=== PATIENT | male | born 1995 | race Caucasian/White ===

== ENCOUNTER 2016-04-20 05:16 | Inpatient (IN) | payer BC, OTHER ==
[~2016-04-20] VITALS: Ht 180.3 cm; Wt 77.5 kg
[2016-04-20] VITALS (7 sets, daily range): BP systolic 114–136; BP diastolic 71–76; PULSE 66–84; TEMP 36.5–36.9; O2SAT 98–100; Ht 180.3 cm; Wt 77.5 kg
[2016-04-20] MEDS ORDERED: SODIUM CHLORIDE 0.9% 1000ML 1,000 ML IV STA (05:32)
--- NOTE | 2016-04-20 05:37 | EMERGENCY ROOM VISIT NOTE ---
History Report prepared by Lucioibvidal: Kailey Burns Under the Supervision of: Dr. Brandyn Adams M.D. First contact with patient: 05:26 Chief Complaint: RASH Stated Complaint: RASH ON LEG,MOUTH FEELS STRANGE History of Present Illness The patient is a 21 year old male who presents to the Emergency Room with complaints of a persistent rash that started yesterday. He reports the rash is located in his mouth and on his bilateral legs. He denies any pain or itching from the rash. He denies any recent bleeding issues or trauma. He denies any recent fevers, cough, sore throat, headache, neck stiffness, hematuria or dysuria. He also denies any recent illness and states he has felt fine recently. The patient does note he cut himself shaving yesterday morning and states the cut blood for "a while". Source of History: patient Onset: yesterday Position: leg (bilateral), other (mouth) Symptom Intensity: 0/10 Timing: other (persistent) Associated Symptoms: No cough, No fevers, No headache, No neck pain, No sorethroat, No urinary symptoms Review of Systems See HPI for pertinent positives & negatives. A total of 10 systems reviewed and were otherwise negative. Past Medical & Surgical Medical Problems: (1) No significant medical problems (2) Rash Surgical Problems: (1) No significant past surgical history Social History Smoking Status: Never Smoker Smokeless Tobacco Use: No Alcohol Use: occasionally Drug Use: none Marital Status: single Housing Status: lives with roommate Occupation Status: [employer] student Current/Historical Medications No Active Prescriptions or Reported Meds Allergies Coded Allergies: No Known Allergies (Unverified , 04/20/16) Physical Exam Vital Signs Date Time Temp Pulse Resp B/P Pulse Ox O2 Delivery O2 Flow Rate FiO2 04/20/16 07:12 82 17 146/80 96 Room Air 04/20/16 06:31 68 18 124/76 98 Room Air 04/20/16 05:21 36.7 79 20 135/85 99 Room Air Physical Exam GENERAL: Patient is mildly anxious appearing and appears to be in no distress. HEENT: No acute trauma, normocephalic atraumatic, blood blisters and petechial rash throughout inner lips and buccal mucosa, no nasal congestion, no scleral icterus. NECK: No stridor, no adenopathy, no meningismus, trachea is midline. LUNGS: No dyspnea. Clear to auscultation and equal bilaterally. No wheeze, no rhonchi. HEART: Regular rate and rhythm. No murmurs, rubs, gallops appreciated. ABDOMEN: Soft, nontender, bowel sounds positive, no masses appreciated, no peritonitis. BACK: No midline tenderness, no CVA tenderness EXTREMITIES: Normal motion all extremities, no cyanosis, no edema. NEUROLOGIC: Alert and oriented, no acute motor or sensory deficits, no focal weakness, cranial nerves grossly intact. SKIN: Extensive petechial rash of bilateral lower extremities. No cyanosis, no edema. Medical Decision & Procedures Laboratory Results 04/20/16 05:40 Red Blood Count 5.24, Mean Corpuscular Volume 88.0, Mean Corpuscular Hemoglobin 31.1, Mean Corpuscular Hemoglobin Concent 35.4, Neutrophils (%) (Auto) 56.8, Lymphocytes (%) (Auto) 35.3, Monocytes (%) (Auto) 6.7, Eosinophils (%) (Auto) 0.7, Basophils (%) (Auto) 0.3, Neutrophils # (Auto) 4.94, Lymphocytes # (Auto) 3.07, Monocytes # (Auto) 0.58, Eosinophils # (Auto) 0.06, Basophils # (Auto) 0.03 04/20/16 05:40 Test 04/20/16 05:40 White Blood Count 8.70 K/uL (4.8-10.8) Red Blood Count 5.24 M/uL (4.7-6.1) Hemoglobin 16.3 g/dL (14.0-18.0) Hematocrit 46.1 % (42-52) Mean Corpuscular Volume 88.0 fL (80-100) Mean Corpuscular Hemoglobin 31.1 pg (25-34) Mean Corpuscular Hemoglobin Concent 35.4 g/dl (32-36) Platelet Count 2 K/uL (130-400) Neutrophils (%) (Auto) 56.8 % Lymphocytes (%) (Auto) 35.3 % Monocytes (%) (Auto) 6.7 % Eosinophils (%) (Auto) 0.7 % Basophils (%) (Auto) 0.3 % Neutrophils # (Auto) 4.94 K/uL (1.4-6.5) Lymphocytes # (Auto) 3.07 K/uL (1.2-3.4) Monocytes # (Auto) 0.58 K/uL (0.11-0.59) Eosinophils # (Auto) 0.06 K/uL (0-0.5) Basophils # (Auto) 0.03 K/uL (0-0.2) RDW Standard Deviation 42.7 fL (36.4-46.3) RDW Coefficient of Variation 13.3 % (11.5-14.5) Immature Granulocyte % (Auto) 0.2 % Immature Granulocyte # (Auto) 0.02 K/uL (0.00-0.02) Platelet Estimate SIGNIFIC DECREASED Prothrombin Time 11.1 SECONDS (9.0-12.0) Prothromb Time International Ratio 1.0 (0.9-1.1) Activated Partial Thromboplast Time 34.6 SECONDS (21.0-31.0) Partial Thromboplastin Ratio 1.3 Anion Gap 7.0 mmol/L (3-11) Est Creatinine Clear Calc Drug Dose 113.1 ml/min Estimated GFR () 110.6 Estimated GFR (Non- 95.5 BUN/Creatinine Ratio 28.9 (10-20) Calcium Level 9.2 mg/dl (8.5-10.1) Total Bilirubin 0.4 mg/dl (0.2-1) Direct Bilirubin < 0.1 mg/dl (0-0.2) Aspartate Amino Transf (AST/SGOT) 30 U/L (15-37) Alanine Aminotransferase (ALT/SGPT) 63 U/L (12-78) Alkaline Phosphatase 71 U/L (45-117) C-Reactive Protein < 0.29 mg/dl (0-0.29) Total Protein 7.9 gm/dl (6.4-8.2) Albumin 4.2 gm/dl (3.4-5.0) Monoscreen NEG (NEG) Laboratory results as reviewed by me. Medications Administered Medications (Trade) Dose Ordered Sig/Miki Route Start Time Stop Time Status Last Admin Dose Admin Sodium Chloride (Nss 1000ml) 1,000 ml @ 75 mls/hr [id number] STAT IV 04/20/16 05:32 04/20/16 18:51 04/20/16 05:40 75 MLS/HR ED Course 0528: The patient was evaluated in room B10. A complete history and physical exam was performed. 0532: NSS 1000 ml @ 75 mls/hr IV. 0645: I reevaluated the patient. He is resting comfortably but is requesting I call his parents to discuss his test results. I had an extensive conversation with the patients Mother and she verbalized complete understanding and agreement. Medical Decision 21 yr old male arrives for evaluation for blisters in mouth and petechia on legs. He has no pain nor other symptoms. Did eventually admit easy bloody noses recently. No abdominal TTP, has clear lungs and no breathing difficulty. Denies blood in stool nor urinary symptoms. No recent infection nor viral syndromes. Stable and in no distress. No medications recently. Exam and labs consistent with ITP. Others drug reaction, TTP, HUS, HSP much less likely. No evidence of sepsis nor meningitis. He is not in DIC. Discussed steroids with admission team and they note they will discuss further with Hematology prior to initiation of these as inpatient. I discussed case at request of patient with his Mother (Samantha: [phone]) and made her aware of what is going on. Parents will drive in from [facility] area this morning. Impression Primary Impression: Idiopathic thrombocytopenia Scribe Attestation The scribe's documentation has been prepared under my direction and personally reviewed by me in its entirety. I confirm that the note above accurately reflects all work, treatment, procedures, and medical decision making performed by me. Departure Information Dispostion Being Evaluated By Hospitalist Prescriptions No Active Prescriptions or Reported Meds Referrals [facility] (PCP) Patient Instructions [facility]
[2016-04-20 06:09] LABS: PARTIAL THROMBOPLASTIN RATIO 1.3; PROTHROMBIN TIME (PATIENT) 11.1 SECONDS (9.0-12.0)
[2016-04-20 06:14] LABS: ALT/SGPT 63 U/L (12-78); AST/SGOT 30 U/L (15-37); BLOOD UREA NITROGEN 32 mg/dl (7-18); BUN/CREATININE RATIO 28.9 (10-20); CALCIUM 9.2 mg/dl (8.5-10.1); CARBON DIOXIDE 31 mmol/L (21-32); CHLORIDE 103 mmol/L (98-107); GLUCOSE 103 mg/dl (70-99); POTASSIUM 3.3 mmol/L (3.5-5.1); SODIUM 141 mmol/L (136-145)
[2016-04-20 06:17] LABS: ALKALINE PHOSPHATASE 71 U/L (45-117)
[2016-04-20 06:24] LABS: BASO % 0.3 %; BASO ABS # 0.03 K/uL (0-0.2); COMPLETE YES; EOS % 0.7 %; HEMATOCRIT 46.1 % (42-52); IG% 0.2 %; LYMPH % 35.3 %; LYMPH ABS # 3.07 K/uL (1.2-3.4); MEAN CORPUSCULAR HEMOGLOBIN 31.1 pg (25-34); MEAN CORPUSCULAR HGB CONC 35.4 g/dl (32-36); MONO % 6.7 %; NEUT % 56.8 %; PLATELET COUNT 2 K/uL (130-400); PLT ESTIMATE SIGNIFIC DECREASED; RED BLOOD COUNT 5.24 M/uL (4.7-6.1)
--- NOTE | 2016-04-20 08:18 | History and Physical ---
History & Physical Date & Time of Service: Apr 20, 2016 at 08:18 Chief Complaint: Rash On Leg,Mouth Feels Strange Primary Care Physician: [facility] History of Present Illness Source: patient This is a 21 y/o male with no significant PMx presented to the hospital with petechial rash. He states that he noticed the rash yesterday night. He also had epistaxis every time he would blow his nose. First he noticed the rash mostly on his lower extremities and now it is spreading to his upper extremities as well. He states he didn't any febrile illness but he was congested for past 2-3 days. He is otherwise healthy. He denies cough, SOB, chest pain, sore throat, headache, neck stiffness, hematuria, dysuria, or any GI bleeding. Lab work on admission showed WBCs: 8700, hemoglobin:16.3 and a platelet count: 2000. Past Medical/Surgical History Medical Problems: (1) No significant medical problems Status: Chronic Surgical Problems: (1) No significant past surgical history Status: Chronic Social History Smoking Status: Never Smoker Smokeless Tobacco Use: No Alcohol Use: 3-4 days/week and would drink about 8-9 drinks Drug Use: none Marital Status: single Occupational Status: [employer] student Allergies Coded Allergies: No Known Allergies (Unverified , 04/20/16) Home Medications Scheduled Dexamethasone (Decadron), 40 MG PO UD Pantoprazole (Pantoprazole Sodium), 40 MG PO QAM Review of Systems Constitutional: No chills, No fever Respiratory: No cough, No dyspnea at rest, No dyspnea on exertion, No shortness of breath, No sputum, No wheezing Cardiovascular: No chest pain, No edema Abdomen: No GI bleeding, No constipation, No diarrhea, No nausea, No pain, No vomiting Musculoskeletal: No muscle pain Genitourinary - Male: No dysuria, No hematuria, No urinary frequency, No urinary urgency Integumentary: + problem reported (petechial rash on b/l lower extremities) Physical Exam Vital Signs Date Time Temp Pulse Resp B/P Pulse Ox O2 Delivery O2 Flow Rate FiO2 04/20/16 07:12 82 17 146/80 96 Room Air 04/20/16 06:31 68 18 124/76 98 Room Air 04/20/16 05:21 36.7 79 20 135/85 99 Room Air General Appearance: no apparent distress Head: normocephalic, atraumatic Eyes: normal inspection, PERRL, EOMI ENT: TMs normal Neck: supple, trachea midline Respiratory/Chest: chest non-tender, lungs clear, normal breath sounds, no respiratory distress, no accessory muscle use Cardiovascular: regular rate, rhythm, no edema, no murmur Abdomen/GI: normal bowel sounds, non tender, soft Extremities/Musculoskelatal: no calf tenderness, no pedal edema, non-tender Neurologic/Psych: alert, normal mood/affect, oriented x 3 Skin: normal color, warm/dry, + pertinent finding (petechial rash mostly on the b/l lower extremities, noted few on the upper extremities. Also noted throughout inner lips and buccal mucosa) Diagnostics Laboratory Results Results Past 24 Hours Test 04/20/16 05:40 04/20/16 07:45 Range/Units White Blood Count 8.70 4.8-10.8 K/uL Red Blood Count 5.24 4.7-6.1 M/uL Hemoglobin 16.3 14.0-18.0 g/dL Hematocrit 46.1 42-52 % Mean Corpuscular Volume 88.0 80-100 fL Mean Corpuscular Hemoglobin 31.1 25-34 pg Mean Corpuscular Hemoglobin Concent 35.4 32-36 g/dl Platelet Count 2 130-400 K/uL Neutrophils (%) (Auto) 56.8 % Lymphocytes (%) (Auto) 35.3 % Monocytes (%) (Auto) 6.7 % Eosinophils (%) (Auto) 0.7 % Basophils (%) (Auto) 0.3 % Neutrophils # (Auto) 4.94 1.4-6.5 K/uL Lymphocytes # (Auto) 3.07 1.2-3.4 K/uL Monocytes # (Auto) 0.58 0.11-0.59 K/uL Eosinophils # (Auto) 0.06 0-0.5 K/uL Basophils # (Auto) 0.03 0-0.2 K/uL RDW Standard Deviation 42.7 36.4-46.3 fL RDW Coefficient of Variation 13.3 11.5-14.5 % Immature Granulocyte % (Auto) 0.2 % Immature Granulocyte # (Auto) 0.02 0.00-0.02 K/uL Platelet Estimate SIGNIFIC DECREASED Prothrombin Time 11.1 9.0-12.0 SECONDS Prothromb Time International Ratio 1.0 0.9-1.1 Activated Partial Thromboplast Time 34.6 21.0-31.0 SECONDS Partial Thromboplastin Ratio 1.3 Sodium Level 141 136-145 mmol/L Potassium Level 3.3 3.5-5.1 mmol/L Chloride Level 103 98-107 mmol/L Carbon Dioxide Level 31 21-32 mmol/L Anion Gap 7.0 3-11 mmol/L Blood Urea Nitrogen 32 7-18 mg/dl Creatinine 1.10 0.60-1.40 mg/dl Est Creatinine Clear Calc Drug Dose 113.1 ml/min Estimated GFR () 110.6 Estimated GFR (Non- 95.5 BUN/Creatinine Ratio 28.9 10-20 Random Glucose 103 70-99 mg/dl Calcium Level 9.2 8.5-10.1 mg/dl Total Bilirubin 0.4 0.2-1 mg/dl Direct Bilirubin < 0.1 0-0.2 mg/dl Aspartate Amino Transf (AST/SGOT) 30 15-37 U/L Alanine Aminotransferase (ALT/SGPT) 63 12-78 U/L Alkaline Phosphatase 71 45-117 U/L C-Reactive Protein < 0.29 0-0.29 mg/dl Total Protein 7.9 6.4-8.2 gm/dl Albumin 4.2 3.4-5.0 gm/dl Monoscreen NEG NEG Impression Assessment and Plan This is a 21 y/o male presented to the hospital for petechial rash on lower extremities X2days. 1. Immune thrombocytopenic purpura - Lab work showed platelet count is 2000 - [place] screen is negative, Hep C negative - Parvo and EBV titers are pending - Urine tox (-) - UA is negative for UTI - Start him on dexamethasone 40mg daily for 4days - IV immunoglobin 1gm/kg BID - Protonix 40mg - Heme/Onc is consulted and will continue to appreciate their recommendation - Dr. Gamez recommended to follow up in the clinic after discharge on Sunday 2. Alcohol abuse - Patient drinks 3-4/week and states that he usually take about 8-9 drinks together. - Will discuss with him about alcohol abuse consequences and cessation. 3. DVT prophylaxis - SCDs 4. Code Status - Full code Level of Care Med/Surg Resuscitation Status FULL RESUSCITATION VTE Prophylaxis VTE Risk Assessment Done? Y/N: Yes Risk Level: Moderate Given or contraindicated: SCD's History Resident Physician Supervision Note: I was present with Dr. Martin during the history and exam. I discussed the case with the resident and agree with the findings and plan as documented in the note. Any exceptions or clarifications are listed here. 21 y/o otherwise healthy male presents w/ ~24 hours of spotty red rash of the b/ l LE which has gradually progressed, accompanied by similar lesions in the mouth with bleeding gums and mild epistaxis with nose blowing. Reports some mild UR sx without fever last 2-3 days. No other recent illnesses. Reports no substance use but 3-4 episodes of drinking per week w/ 6+ drinks per episode. Reports no fever, lightheadedness, nausea, sensory changes. FHX - no apparent family history of bleeding disorders General Appearance: WD/WN, no apparent distress Ears, Nose, Throat: nasal congestion, nasal drainage, other (mucosal petichiae w/ bleeding gums) Neck: non-tender, full range of motion, supple Respiratory: chest non-tender, lungs clear, normal breath sounds, no respiratory distress Cardiovascular: normal peripheral pulses, regular rate, rhythm, no edema, no murmur Gastrointestinal: normal bowel sounds, non tender, soft, no organomegaly Neurologic/Psychiatric: other (petichial rash of the b/l LE and trunk) Assessment/Plan 21 y/o male without past medical history presents with petechial rash ITP - dexamethasone 4mg/kg, t/c IVIG. Hematology C/S. Bleeding precautions. f/u UTox, trend CBC daily Binge drinking - counseling regarding dangers and cessation of binge drinking behavior
[2016-04-20] MEDS ORDERED: NURSING VERBAL MED ORDER ONE ×2 (08:45→09:15)
[2016-04-20] MEDS ORDERED: DEXAMETHASONE INJ 40 MG in DEXTROSE 5% 50ML 50 ML IV ONE (09:00)
[2016-04-20] MEDS: PANTOprazole SOD 40 MG TAB PO SCH (09:14)
--- NOTE | 2016-04-20 09:30 | ONCOLOGY CONSULTATION ---
DATE OF CONSULTATION: 04/20/2016 REASON FOR CONSULTATION: Severe thrombocytopenia. HISTORY OF PRESENT ILLNESS: Braulio is a pleasant 21-year-old gentleman who presents to the Emergency Department at [facility] with cutaneous signs and symptoms related to low platelets. He reports about 48 hours ago while blowing his nose having a fair amount of epistaxis. Within hours developed wet purpura and petechial rash involving his lower extremities. The patient denies any previous febrile illness. He is otherwise a healthy 21-year-old gentleman with no significant medical history. Peripheral blood counts on admission confirm normal WBCs at 8700, hemoglobin 16.3 and a platelet count of 2000. Serum chemistries are otherwise unremarkable as well. PAST MEDICAL HISTORY: Negative. PAST SURGICAL HISTORY: Negative. MEDICATIONS PRIOR TO ADMISSION: None. ALLERGIES: No known drug allergies. FAMILY HISTORY: Unremarkable. Both mother and father are healthy. SOCIAL HISTORY: The patient is a [employer] student. Nonsmoker. Does drink alcohol socially. REVIEW OF SYSTEMS: As per HPI. CONSTITUTIONAL: Negative for fevers, chills or night sweats. Denies weight loss or anorexia. SKIN: Positive for petechial rash and oral wet purpura. No history of dermatoses otherwise. HEENT: Denies headaches, lightheadedness or dizziness. No visual or hearing deficits. No sinus symptoms, sore throat or dysphasia. Did report epistaxis day before admission. CARDIOVASCULAR: No history of coronary artery disease. LYMPH: No history of lymphoproliferative disorder. PULMONARY: Negative for COPD. He is not short of breath or dyspneic on exertion. GASTROINTESTINAL: Negative for abdominal pain, nausea, vomiting, diarrhea or constipation, hematochezia or melenic stools. GENITOURINARY: No history of urinary symptoms or problems. MUSCULOSKELETAL: No arthralgias or myalgias. No muscle weakness. NEUROLOGIC: Negative for seizure, stroke or migraine headache. HEMATOLOGIC: Positive for severe thrombocytopenia. PHYSICAL EXAMINATION: GENERAL: Very pleasant 21-year-old gentleman, well developed and nourished, in no acute distress. VITAL SIGNS: Temperature 36.7, pulse 79, respirations 20, blood pressure 135/85. SKIN: Again, petechial rash prominent in the lower extremities bilaterally. HEENT: Head: Atraumatic, normocephalic. Eyes: PERRLA, EOMI. Sclerae nonicteric. No conjunctival injection. Nares patent without rhinorrhea or discharge. Throat is clear. Tonsillar hypertrophy noted. Wet purpura throughout his buccal mucosa noted. NECK: Supple without JVD or thyromegaly. LYMPH: No cervical, supraclavicular or axillary palpable nodes. HEART: Regular rate and rhythm. No clicks, rubs, murmurs or gallops. LUNGS: Clear to auscultation bilaterally. ABDOMEN: Soft, nontender, nondistended, without palpable hepatosplenomegaly. EXTREMITIES: Musculoskeletal strength and pulses are equal. No clubbing, cyanosis or edema. NEUROLOGICAL: He is awake, alert and oriented x3. Cranial nerves II-XII are intact. LABORATORY DATA: As reported in the HPI. IMPRESSION: Immune thrombocytopenia. PLAN: The patient was admitted to the oncology floor for observation and definitive treatment. We will initiate dexamethasone 40 mg daily as well as intravenous immunoglobulin 1 gram/kg daily x2. Discussed immune thrombocytopenia with Braulio and advised him that this may be a chronic problem throughout his life. Remissions in young people are usually sustained but on occasion refractory disease can occur. I briefly discussed alternative therapies such as rituximab, possible splenectomy in the future. There is no indication to transfuse him platelets at this time. He is hemodynamically stable and shows no outward signs of hemorrhage. Should hemorrhage occur, platelets could be administered transiently. Would like to observe him over the next 24 hours. If his platelets are heading upward, I see no reason why he cannot be managed as an outpatient. The patient has already been advised not to engage in any activities which may promote a traumatic injury. We will make arrangements for close outpatient followup as indicated. CBC should be monitored daily until discharge. Thank you very much for allowing me to participate in his care. If you have any questions or concerns, feel free to contact me at anytime.
[2016-04-20 13:50] LABS: URINE APPEARANCE CLEAR (CLEAR); URINE BILIRUBIN NEG (NEG); URINE COLOR YELLOW; URINE EPITHELIAL CELL AUTO 0-5 /lpf (0-5); URINE NITRITE NEG (NEG); UROBILINOGEN NEG (NEG); ZZUR CULT IF INDIC CLEAN CATCH NO
[2016-04-20 13:55] LABS: MANUAL MICROSCOPIC REQUIRED? NO; REVIEW REQ? NO
[2016-04-20 14:28] LABS: BENZODIAZEPINE, URINE NEG (NEG); COCAINE,URINE NEG (NEG); PHENCYCLIDINE, URINE NEG (NEG)
[2016-04-21 00:30] VITALS: BP_SYST 132; BP_SYST 139; BP_DIAS 66; BP_DIAS 77; PULSE 77; TEMP 36.8; O2SAT 93; O2SAT 99
[2016-04-21 06:27] LABS: COMPLETE YES; HEMATOCRIT 42.6 % (42-52); IG% 0.3 %; LARGE PLATELETS 1+; LYMPH % 9.1 %; LYMPH ABS # 1.05 K/uL (1.2-3.4); MEAN CELL VOLUME 87.3 fL (80-100); MEAN CORPUSCULAR HEMOGLOBIN 30.5 pg (25-34); MONO % 8.4 %; NEUT % 82.2 %; PLATELET COUNT 15 K/uL (130-400); PLT ESTIMATE SIGNIFIC DECREASED; RED BLOOD COUNT 4.88 M/uL (4.7-6.1); WHITE BLOOD COUNT 11.48 K/uL (4.8-10.8)
[2016-04-21 06:39] LABS: BUN/CREATININE RATIO 19.6 (10-20); CALCIUM 9.2 mg/dl (8.5-10.1); CREATININE 0.94 mg/dl (0.60-1.40); POTASSIUM 3.7 mmol/L (3.5-5.1)
[2016-04-21] MEDS ORDERED: DEXAMETHASONE INJ 40 MG in DEXTROSE 5% 50ML 50 ML IV SCH (08:00)
[2016-04-21] MEDS ORDERED: DEXAMETHASONE INJ 40 MG in SYRINGE 0 ML IV SCH (08:00)
[2016-04-21] MEDS ORDERED: NURSING VERBAL MED ORDER ONE (08:00)
[2016-04-21 08:06] VITALS: BP 116/65; PULSE 64; TEMP 36.6; O2SAT 98
[2016-04-21] MEDS: PANTOprazole SOD 40 MG TAB PO SCH (08:28)
--- NOTE | 2016-04-21 08:34 | HEME/ONC PROGRESS NOTE ---
DATE: 04/21/2016 DATE: 04/21/2016 DIAGNOSIS: Immune thrombocytopenic purpura. HOSPITAL COURSE: Braulio is a pleasant 21-year-old gentleman who had presented to the Emergency Department yesterday with cutaneous signs and symptoms related to low platelets. His platelet count was 2000 and was empirically treated with high dose dexamethasone and intravenous immunoglobulin, both of which were well tolerated. He has no clinical issues this morning and would like to be discharged if possible. PHYSICAL EXAMINATION: GENERAL: 21-year-old gentleman in no acute distress. VITAL SIGNS: Temperature 36.8, pulse 77, respirations 18, blood pressure 132/66. SKIN: Positive for petechial rash involving the tibial plateaus bilaterally. HEENT: Oral mucosa with resolving wet purpura. NECK: Supple. HEART: Regular rate and rhythm. No clicks, rubs, murmurs or gallops. LUNGS: Clear to auscultation. ABDOMEN: Soft, nontender, nondistended, without palpable hepatosplenomegaly. EXTREMITIES: No calf tenderness or swelling. No clubbing, cyanosis or edema. NEUROLOGIC: Grossly intact. LABORATORY DATA: WBC count 11,480, hemoglobin 14.9, platelet count 15,000. Serum chemistries otherwise unremarkable. IMPRESSION: Idiopathic thrombocytopenic purpura. PLAN: The patient will receive a course of dexamethasone and intravenous immunoglobulin again today. I see no reason why he cannot be discharged post-infusion. He will need 2 additional days of oral dexamethasone 40 mg in total. He is instructed to take all of the dexamethasone in the morning so side effects may wane by bedtime. I will see him in the office later on this upcoming week. He is stable enough for discharge. CBC will be drawn on Sunday and again just prior to his followup visit. If you have any questions or concerns, feel free to contact me.
[2016-04-21] MEDS ORDERED: DXM/4 PO ×2 (09:19→09:23)
[2016-04-21] MEDS ORDERED: PRT40 PO (09:19)
--- NOTE | 2016-04-21 09:30 | Discharge Instructions ---
Discharge Instructions Admission Reason for Admission: Idiopathic Thrombocytopenia; Rash Discharge Discharge Diagnosis / Problem: Immune thrombocytopenic purpura Discharge Goals Goal(s): Decrease discomfort, Increase independence, Improve disease control Activity Recommendations Activity Limitations: resume your previous activity . Instructions / Follow-Up Instructions / Follow-Up You are admitted to the hospital because you had low platelet counts. - In the hospital you were given dexamethasone 40mg daily and IV immunoglobin twice. - Your platelet count improved - Please take the dexamethasone 40mg daily for 2 more days (ends on Sunday) - Take protonix 40mg daily for 1-2weeks - Follow up with Dr. Gamez on next Sunday as scheduled. Please do the blood work on this Sunday. - Follow up with primary doctor Dr. Martin in 4-6 weeks Current Hospital Diet Patient's current hospital diet: Regular Diet Discharge Diet Recommended Diet: Regular Diet Pending Studies Studies pending at discharge: yes List of pending studies: EBV and parvo virus antibodies Work Instructions Return To Work: 1 day Additional Instructions: Patient was admitted to the hospital on 04/20/16 for symptoms associated with low platelet counts. He is discharge on 04/21/16. He can return to school on Sunday. Medical Emergencies . Who to Call and When: Medical Emergencies: If at any time you feel your situation is an emergency, please call 911 immediately. . Non-Emergent Contact Non-Emergency issues call your: Primary Care Provider . . "Provider Documentation" section prepared by Tracy Martin. VTE Core Measure Inpt VTE Proph given/why not?: SCD's
[2016-04-21 09:31] VITALS: BP 135/53; PULSE 66; TEMP 36.5; O2SAT 98
--- NOTE | 2016-04-21 09:41 | Death Summary ---
Summary of Admission Date Apr 20, 2016 at 07:45 Date & Time of Apr 21, 2016.
[2016-04-21 10:07] VITALS: BP 124/72; PULSE 69; TEMP 36.6; O2SAT 98
--- NOTE | 2016-04-21 10:37 | Discharge Summary ---
Discharge Summary Admission Date: Apr 20, 2016 at 07:45 Discharge Date: Apr 21, 2016 Discharge Disposition: Home Principal Diagnosis: Immune thrombocytopenic purpura (Tracy Martin MD) Medication Reconciliation New Medications: Dexamethasone (Decadron) 4 Mg Tab 40 MG PO UD for 2 Days, #20 TAB Pantoprazole (Pantoprazole Sodium) 40 Mg Tab 40 MG PO QAM for 27 Days, TAB Discharge Exam Patient was seen at the bedside. He denies any complaints and tolerating food well. Denies SOB, chest pain, headache, dizziness, weakness, melena, hematochezia, or any other additional complaints. Review of Systems: Constitutional: No chills, No fever Respiratory: No cough, No dyspnea at rest, No dyspnea on exertion, No shortness of breath, No sputum, No wheezing Cardiovascular: No chest pain, No edema Abdomen: No constipation, No diarrhea, No nausea, No pain, No vomiting Musculoskeletal: No joint pain Genitourinary - Male: No dysuria Integumentary: + rash (rash on the lower extremities) Physical Exam: General Appearance: WD/WN, no apparent distress Eyes: normal inspection Neck: supple, trachea midline Respiratory/Chest: chest non-tender, lungs clear, normal breath sounds, no respiratory distress Cardiovascular: regular rate, rhythm, no edema, no murmur Abdomen / GI: normal bowel sounds, non tender, soft Extremities: normal inspection, non-tender Neurologic/Psychiatric: alert, normal mood/affect, normal reflexes Skin: normal color, warm/dry, + pertinent finding (petechial rash mostly on the lower extremities, petechial rash on the inner lips and buccal mucosa has improved significantly) (Tracy Martin MD) Hospital Course This is a 21 y/o male with no significant PMx presented to the hospital with petechial rash. He states that he noticed the rash 2 days ago. He also had epistaxis every time he would blow his nose. First he noticed the rash mostly on his lower extremities and now it is spreading to his upper extremities as well. He states he didn't any febrile illness but he was congested for past 2-3 days. He is otherwise healthy. He denies cough, SOB, chest pain, sore throat, headache, neck stiffness, hematuria, dysuria, or any GI bleeding. 1. Immune thrombocytopenic purpura - [place] [address] - Villalba screen is negative, Hep C negative - Parvo and EBV titers are pending - Urine tox (-) - UA is negative for UTI - Start him on dexamethasone 40mg daily for 4days. - IV immunoglobin 1gm/kg BID X2days - Protonix 40mg daily for 1-2weeks - Follow up with Dr. Gamez in the clinic after discharge 2. Alcohol abuse - Patient drinks 3-4/week and states that he usually take about 8-9 drinks together. - Had a long discussion with the patient about alcohol cessation. He states that his plan is to reduce the quantity of drink by 2 every week. He will follow with the primary care provider in 4-6weeks. This includes examination of the patient, discharge planning, medication reconciliation, and communication with other providers. (Tracy Martin MD) Total Time Spent: Less than 30 minutes (Km Queen MD) Discharge Instructions Please refer to the electronic Patient Visit Report (Discharge Instructions) for additional information. (Tracy Martin MD) History Resident Physician Supervision Note: I was present with Dr. Martin during the history and exam. I discussed the case with the resident and agree with the findings and plan as documented in the note. Any exceptions or clarifications are listed here. Pt seen and examined at bedside. Improving oral rash and discomfort. Reports no epistaxis, bruising, joint pain, CP/SOB, palpitations. (Km Queen MD) General Appearance: WD/WN, no apparent distress Ears, Nose, Throat: TMs normal, other (improved petechial rash of the OP and buccal mucosa) Respiratory: chest non-tender, lungs clear, normal breath sounds, no respiratory distress Cardiovascular: normal peripheral pulses, regular rate, rhythm, no edema, no murmur Skin Characteristics: warm/dry, rash (persistent unchange petechial rash of the b/l LE) (Km Queen MD) Assessment/Plan 21 y/o male without past medical history presents with petechial rash ITP - complete IVIG dose #2 today, dexamethasone 4mg/kg for two more days after today. Hematology follow up. Bleeding precautions reviewed Binge drinking - reinforced counseling regarding dangers and cessation of binge drinking behavior (Km Queen MD)
[2016-04-21 12:56] VITALS: BP 151/76; PULSE 81; TEMP 36.5; O2SAT 98
[2016-04-21 14:06] VITALS: BP 151/76; PULSE 81; TEMP 36.5; O2SAT 98
[2016-04-22 23:33] LABS: EPSTEIN BARR VIR CAPSID IGG <0.91 INDEX; PARVOVIRUS IgM INDEX 0.2 (<0.9)
== END 2016-04-21 14:35 | disposition home or self-care (01) | DRG 813 ==
LOC: ENRESERVDT → ENRESERVTM → C.EDB 05:17 → C.4E 07:45 → EDBEDREQ 07:47
PROVIDERS: ADMIT Student in an Organized Health Care Education/Training Program; ATTEND Family Medicine
DX: D69.3 Immune thrombocytopenic purpura (principal); F10.10 Alcohol abuse, uncomplicated

== ENCOUNTER 2016-04-25 19:03 | Emergency (ER) | payer BC ==
[~2016-04-25] VITALS: Ht 180.3 cm; Wt 81.7 kg
[~2016-04-25 19:03] MED LIST: DXM/4 PO; PRT40 PO
[2016-04-25 19:08] VITALS: TEMP 36.5; Ht 180.3 cm; Wt 81.7 kg
[2016-04-25] MEDS ORDERED: SODIUM CHLORIDE 0.9% 1000ML 1,000 ML IV STA (19:23)
[2016-04-25] MEDS ORDERED: ACETAMINOPHEN 500 MG TAB PO STA (19:23)
[2016-04-25 20:03] LABS: URINE APPEARANCE CLEAR (CLEAR); URINE BILIRUBIN NEG (NEG); URINE COLOR YELLOW; URINE NITRITE NEG (NEG); URINE SPECIFIC GRAVITY 1.015 (1.000-1.030); UROBILINOGEN NEG (NEG)
[2016-04-25 20:03] LABS: BASO % 0.3 %; BASO ABS # 0.03 K/uL (0-0.2); COMPLETE YES; EOS % 0.7 %; HEMATOCRIT 48.9 % (42-52); IG% 0.6 %; LYMPH % 34.7 %; MEAN CELL VOLUME 87.8 fL (80-100); MEAN CORPUSCULAR HEMOGLOBIN 30.3 pg (25-34); MEAN CORPUSCULAR HGB CONC 34.6 g/dl (32-36); MEAN PLATELET VOLUME 9.4 fL (7.4-10.4); MONO % 9.7 %; PLATELET COUNT 247 K/uL (130-400); RED BLOOD COUNT 5.57 M/uL (4.7-6.1); WHITE BLOOD COUNT 8.65 K/uL (4.8-10.8)
[2016-04-25 20:06] LABS: MANUAL MICROSCOPIC REQUIRED? NO; REVIEW REQ? NO
[2016-04-25 20:15] LABS: PARTIAL THROMBOPLASTIN RATIO 1.1; PROTHROMBIN TIME (PATIENT) 10.7 SECONDS (9.0-12.0)
--- NOTE | 2016-04-25 20:19 | DIAGNOSTIC IMAGING REPORT ---
HEAD CT NONCONTRAST CT DOSE: 537.48 mGy.cm HISTORY: Headache ITP headache TECHNIQUE: Multiaxial CT images of the head were performed without the use of intravenous contrast. Comparison: None. Findings: The paranasal sinuses and mastoid air cells are clear. The calvarium and skull base are intact. The ventricles and sulci are within normal limits. There is no mass, hematoma, midline shift, or acute infarct. Impression: No acute intracranial abnormality. Electronically signed by: Barrington Stern M.D. 04/25/2016 8:17 PM Dictated Date/Time: 04/25/2016 8:16 PM
[2016-04-25 20:25] LABS: BUN/CREATININE RATIO 22.1 (10-20); CALCIUM 9.4 mg/dl (8.5-10.1); CREATININE 1.2 mg/dl (0.60-1.40); POTASSIUM 3.6 mmol/L (3.5-5.1)
[2016-04-25 20:28] LABS: ALB/GLOB RATIO 0.6 (0.9-2)
[2016-04-25] MEDS ORDERED: DEXAMETHASONE 4 MG TAB PO ONE (20:45)
[2016-04-25] MEDS ORDERED: METH4PAK PO (20:48)
[2016-04-25 21:04] VITALS: BP 124/65; PULSE 75; O2SAT 99
--- NOTE | 2016-04-26 00:31 | EMERGENCY ROOM VISIT NOTE ---
History Report prepared by Leonel: Elida Dee Under the Supervision of: Dr. Wally Baker M.D. First contact with patient: 19:16 Chief Complaint: HEADACHE Stated Complaint: HEADACHE, LIGHTHEADEDNESS History of Present Illness The patient is a 21 year old male who presents to the Emergency Room with complaints of a worsening headache beginning this morning. He describes his pain as 5/10 in severity. The patient notes he is also experiencing dizziness and light sensitivity. He was discharged from the hospital on April 21 and was diagnosed with ITP. His platelet count was 15 at time of discharge. He notes that since discharge, his symptoms had been improving. The patient was given steroids for 2 days. Yesterday he did not take the steroids and felt well , today he feels poorly and is wondering if he came off of the steroids too quickly. The patient denies fever, appetite change, urinary symptoms, cough, congestion or trauma to his head. Source of History: patient Onset: this morning Position: other (global) Symptom Intensity: 5/10 Quality: other (headache) Timing: worsening Associated Symptoms: No cough, No fevers, No urinary symptoms Note: Patient is experiencing dizziness and light sensitivity. Review of Systems See HPI for pertinent positives & negatives. A total of 10 systems reviewed and were otherwise negative. Past Medical & Surgical Medical Problems: (1) No significant medical problems (2) Rash Surgical Problems: (1) No significant past surgical history Family History Patient reports no known family medical history. Social History Smoking Status: Never Smoker Alcohol Use: occasionally Drug Use: none Marital Status: single Housing Status: lives with roommate Occupation Status: [employer] student Current/Historical Medications Scheduled Methylprednisolone (Medrol Dosepak), 1 PKT PO UD Pantoprazole (Pantoprazole Sodium), 40 MG PO QAM Allergies Coded Allergies: No Known Allergies (Unverified , 04/20/16) Physical Exam Vital Signs Date Time Temp Pulse Resp B/P Pulse Ox O2 Delivery O2 Flow Rate FiO2 04/25/16 21:04 75 18 124/65 99 Room Air 04/25/16 19:08 36.5 68 20 125/75 98 Room Air Physical Exam GENERAL: Patient is in no acute distress. HEENT: No acute trauma, normocephalic atraumatic, mucous membranes moist, no nasal congestion, no scleral icterus. NECK: No stridor, no adenopathy, no meningismus, trachea is midline. LUNGS: Clear to auscultation bilaterally, no wheeze, no rhonchi, breath sounds equal. HEART: Without murmurs gallops or rubs, regular rate and rhythm. ABDOMEN: Soft, nontender, bowel sounds positive, no hernias, no peritonitis. EXTREMITIES: No cyanosis or edema, full range of motion of all the joints without pain or difficulty, no signs for acute trauma. NEUROLOGIC: Oriented x 3, no acute motor or sensory deficits, no focal weakness. SKIN: No rash, no jaundice, no diaphoresis. Medical Decision & Procedures ER Provider Diagnostic Interpretation: CT results as stated below per my review and radiologist interpretation: HEAD CT NONCONTRAST CT DOSE: 537.48 mGy.cm HISTORY: Headache ITP headache TECHNIQUE: Multiaxial CT images of the head were performed without the use of intravenous contrast. Comparison: None. Findings: The paranasal sinuses and mastoid air cells are clear. The calvarium and skull base are intact. The ventricles and sulci are within normal limits. There is no mass, hematoma, midline shift, or acute infarct. Impression: No acute intracranial abnormality. Electronically signed by: Barrington Stern M.D. 04/25/2016 8:17 PM Dictated Date/Time: 04/25/2016 8:16 PM Laboratory Results 04/25/16 19:49 Red Blood Count 5.57, Mean Corpuscular Volume 87.8, Mean Corpuscular Hemoglobin 30.3, Mean Corpuscular Hemoglobin Concent 34.6, Mean Platelet Volume 9.4, Neutrophils (%) (Auto) 54.0, Lymphocytes (%) (Auto) 34.7, Monocytes (%) (Auto) 9.7, Eosinophils (%) (Auto) 0.7, Basophils (%) (Auto) 0.3, Neutrophils # (Auto) 4.67, Lymphocytes # (Auto) 3.00, Monocytes # (Auto) 0.84, Eosinophils # (Auto) 0.06, Basophils # (Auto) 0.03 04/25/16 19:49 Test 04/25/16 19:40 04/25/16 19:49 Urine Color YELLOW Urine Appearance CLEAR (CLEAR) Urine pH 6.0 (4.5-7.5) Urine Specific [place] 1.015 (1.000-1.030) Urine Protein NEG (NEG) Urine Glucose (UA) NEG (NEG) Urine Ketones NEG (NEG) Urine Occult Blood NEG (NEG) Urine Nitrite NEG (NEG) Urine Bilirubin NEG (NEG) Urine Urobilinogen NEG (NEG) Urine Leukocyte Esterase NEG (NEG) White Blood Count 8.65 K/uL (4.8-10.8) Red Blood Count 5.57 M/uL (4.7-6.1) Hemoglobin 16.9 g/dL (14.0-18.0) Hematocrit 48.9 % (42-52) Mean Corpuscular Volume 87.8 fL (80-100) Mean Corpuscular Hemoglobin 30.3 pg (25-34) Mean Corpuscular Hemoglobin Concent 34.6 g/dl (32-36) Platelet Count 247 K/uL (130-400) Mean Platelet Volume 9.4 fL (7.4-10.4) Neutrophils (%) (Auto) 54.0 % Lymphocytes (%) (Auto) 34.7 % Monocytes (%) (Auto) 9.7 % Eosinophils (%) (Auto) 0.7 % Basophils (%) (Auto) 0.3 % Neutrophils # (Auto) 4.67 K/uL (1.4-6.5) Lymphocytes # (Auto) 3.00 K/uL (1.2-3.4) Monocytes # (Auto) 0.84 K/uL (0.11-0.59) Eosinophils # (Auto) 0.06 K/uL (0-0.5) Basophils # (Auto) 0.03 K/uL (0-0.2) RDW Standard Deviation 42.6 fL (36.4-46.3) RDW Coefficient of Variation 13.3 % (11.5-14.5) Immature Granulocyte % (Auto) 0.6 % Immature Granulocyte # (Auto) 0.05 K/uL (0.00-0.02) Prothrombin Time 10.7 SECONDS (9.0-12.0) Prothromb Time International Ratio 1.0 (0.9-1.1) Activated Partial Thromboplast Time 28.0 SECONDS (21.0-31.0) Partial Thromboplastin Ratio 1.1 Anion Gap 10.0 mmol/L (3-11) Est Creatinine Clear Calc Drug Dose 103.7 ml/min Estimated GFR () 99.6 Estimated GFR (Non- 85.9 BUN/Creatinine Ratio 22.1 (10-20) Calcium Level 9.4 mg/dl (8.5-10.1) Total Bilirubin 0.3 mg/dl (0.2-1) Aspartate Amino Transf (AST/SGOT) 45 U/L (15-37) Alanine Aminotransferase (ALT/SGPT) 98 U/L (12-78) Alkaline Phosphatase 67 U/L (45-117) Total Protein 10.2 gm/dl (6.4-8.2) Albumin 4.0 gm/dl (3.4-5.0) Globulin 6.2 gm/dl (2.5-4.0) Albumin/Globulin Ratio 0.6 (0.9-2) Laboratory results reviewed by me. Medications Administered Medications (Trade) Dose Ordered Sig/Miki Route Start Time Stop Time Status Last Admin Dose Admin Sodium Chloride (Nss 1000ml) 1,000 ml @ 999 mls/hr Q1H1M STAT IV 04/25/16 19:23 04/25/16 20:23 DC 04/25/16 20:02 999 MLS/HR Acetaminophen (Tylenol Tab) 1,000 mg NOW STAT PO 04/25/16 19:23 04/25/16 19:25 DC 04/25/16 19:59 1,000 MG Dexamethasone (Decadron Tab) 10 mg NOW ONCE PO 04/25/16 20:45 04/25/16 20:46 DC 04/25/16 20:52 10 MG ED Course 1918: The patient was evaluated in room A10. A complete history and physical exam was performed. 1922: Tylenol Tab 1,000 mg PO, Sodium Chloride 1,000 ml @ 999 mls/hr IV. 2032: I spoke with Dr. Johnny Eisenberg about the patient. He suggests the patient's symptoms are from coming off a high dosage of steroids rapidly. 2039: I reevaluated the patient. 2044: Decadron Tab 10 mg PO. 2050: Reevaluated the patient. Discussed results and discharge instructions: he verbalized understanding and agreement. The patient is ready for discharge. Medical Decision The patient is a 21 year old male who presents to the ED with complaints of headache. Differential diagnoses considered include medication reaction, intracranial bleeding, viral illness, anemia, worsening thrombocytopenia, electrolyte imbalance, dehydration There is no leukocytosis or concerning anemia. There is no longer any evidence for thrombocytopenia. No significant electrolyte abnormality or kidney failure. There were some very subtle elevations to the LFTs. Urinalysis does not show infection. Brain CT shows no acute bleed or mass effect. On exam, the patient was not toxic or febrile, he looked well. Patient received IV saline, oral Tylenol. He was given a dose of oral Decadron. I spoke to the on-call structural shop helper. The patient's symptoms are consistent with stopping steroids suddenly, especially because he was on such large doses. The patient will be tapered down more slowly with a Medrol Dosepak. He can return for worsening symptoms and will follow as an outpatient as previously instructed. . Consults Time Called: 2029 Consulting Physician: Dr. Johnny Eisenberg Returned Call: [address] Johnny Eisenberg about the patient. He suggests the patient's symptoms are from coming off a high dosage of steroids rapidly. Impression Primary Impression: Medication reaction Additional Impressions: Head ache Weakness Scribe Attestation The scribe's documentation has been prepared under my direction and personally reviewed by me in its entirety. I confirm that the note above accurately reflects all work, treatment, procedures, and medical decision making performed by me. Departure Information Dispostion Home / Self-Care Prescriptions Methylprednisolone (MEDROL DOSEPAK) 4 Mg Fr[place] 1 PKT PO UD for 6 Days, #1 PKT Prov: Wally Baker M.D. 04/25/16 Referrals [facility] (PCP) Forms HOME CARE DOCUMENTATION FORM, IMPORTANT VISIT INFORMATION, School Instructions Patient Instructions My [facility] Additional Instructions medrol dose pack as directed fluids rest follow up as previously suggested all testing today was ok, platelets are much better Problem Qualifiers
== END 2016-04-25 21:04 | disposition home or self-care (01) ==
LOC: C.EDB 19:04 → C.EDA 21:04
DX: T78.40XA Allergy, unspecified, initial encounter (principal); X58.XXXA Exposure to other specified factors, initial encounter; R51 Headache; R53.1 Weakness